=== PATIENT | male | born 1975 | race Caucasian/White ===

== ENCOUNTER 2020-06-20 05:53 | Observation (INO) ==
--- NOTE | 2020-06-14 12:45 | Anesthesiology Consultation ---
Date of Service June 14, 2020 Assessment & Plan (1) Encounter for pre-operative examination: Per assessment on 06/14: Travel screen- Lives/works [place] [facility]. No known COVID- 19 positive contacts or current COVID-19 related symptoms. Surgeon arranging preop COVID testing (scheduled 06/15; S). Awaiting results. Chart Review Chart Review: Acceptable Risk for Surgery and Patient NOT seen in Pre Admission Testing History Surgery Operation Date: 06/20/20 07:30 Proposed Procedures p Robotic Laparoscopic Incisional Hernia Repair with Mesh, Possible Open - Lala Prakash MD Height/Weight Height: 5 ft 6 in Weight: 92.986 kg Allergies Allergy/AdvReac Type Severity Reaction Status Date / Time No Known Allergies Allergy Verified 06/14/20 11:58 Medications Home Medications Medication Instructions Recorded Confirmed Last Taken albuterol sulfate [Ventolin HFA] 2 puff INHALATION Q4H PRN 05/23/20 06/14/20 Unknown montelukast 10 mg PO HS 05/23/20 06/14/20 Unknown omeprazole 20 mg PO QAM 05/23/20 06/14/20 Unknown acetaminophen [Tylenol] 650 mg PO QID PRN 06/14/20 06/14/20 Unknown multivitamin 1 tab PO QAM 06/14/20 06/14/20 Unknown Past Medical History Medical History (Updated 06/14/20 @ 12:43 by Mei Schafer) Asthma occasional inhaler use Diverticular disease GERD (gastroesophageal reflux disease) Obesity Past Family History Family History Father Family history of diabetes mellitus Past Surgical History Surgical History History of bowel resection for diverticulitis History of colonoscopy multiple History of repair of rotator cuff right Social History Smoking Status: Never smoker Do You Dip or Chew Tobacco: No Hx Alcohol Use: Yes Alcohol type: wine and hard liquor alcohol intake frequency: a few times a month Hx Substance Use: No Testing Laboratory Results 05/23/20 WBC 11.87 H/H 14.0/39.6 PLATELETS 350 SODIUM 139 POTASSIUM 3.6 CHLORIDE 104 CO2 29 BUN 14 CREATININE 1.07 GLUCOSE 4 PT 10.6 PTT 34.5 INR 1.0 Electrocardiogram Date: 05/23/20 NSR at 89bpm. Possible LAE. NS STA. Chest X-Ray Date: 05/23/20 No evidence of focal pulmonary consolidation. Suboptimal inspiration. Mild interstitial prominence. This could be related to a hypoventilatory study or an infectious/inflammatory process.
[2020-06-20] MEDS ORDERED: LR 15ML/HR IV SCH (06:00)
[2020-06-20] MEDS ORDERED: ceFAZolin 2000MG 2,000 MG/15 ML SYR IV SCH (06:00)
[2020-06-20] MEDS ORDERED: LIDOCAINE HCL 2% 2 ML VIAL/AMP(20MG/ML) INFIL ONE (07:03)
[2020-06-20] MEDS ORDERED: ONDANSETRON INJ 2 MG/ML 2 ML VIAL ONE ×2 (07:03→10:10)
[2020-06-20] MEDS ORDERED: NEOSTIGMINE METHYLSULFATE 5 MG/5 ML SYR ONE (07:03)
[2020-06-20] MEDS ORDERED: DEXAMETHASONE SOD INJ 4 MG/ML VIAL ONE (07:03)
[2020-06-20] MEDS ORDERED: fentaNYL citrate 100 MCG/2 ML VIAL ONE ×2 (07:03→09:56)
[2020-06-20] MEDS ORDERED: GLYCOPYRROLATE 0.2 MG/ML VIAL ONE (07:03)
[2020-06-20] MEDS ORDERED: MIDAZOLAM HCL 1 MG/ML 2ML VIAL ONE (07:03)
[2020-06-20] MEDS ORDERED: PROPOFOL IV EMULSION 10 MG/ML 20 ML VIAL IV ONE ×2 (07:03→08:20)
[2020-06-20] MEDS ORDERED: LARYING-O-JET KIT (LTA) ONE (07:06)
[2020-06-20] MEDS ORDERED: ROCURONIUM BROMIDE 10 MG/ML 5 ML VIAL IV ONE ×2 (07:06→10:11)
[2020-06-20] MEDS ORDERED: ceFAZolin 2000MG 2,000 MG/15 ML SYR IV ONE (07:13)
--- NOTE | 2020-06-20 07:13 | History & Physical Bridge Note ---
Date of Service June 20, 2020 History & Physical Bridge Note I have examined the patient, reviewed the History & Physical and in the interval since the performance of the History & Physical I have noted the following changes of clinical significance: no changes noted
[2020-06-20] MEDS ORDERED: BUPIVACAINE 0.5 % 5 MG/1 ML MPF 30ML VIAL ONE (07:20)
[2020-06-20] MEDS ORDERED: ePHEDrine sulfate 50 MG/ML SYR ONE (08:35)
[2020-06-20] MEDS ORDERED: PHENYLEPHRINE 100MCG/ML 5ML SYR ONE (08:35)
[2020-06-20] MEDS ORDERED: FLUMAZENIL 0.1 MG/1 ML 10 ML VIAL IV PRN (08:44)
[2020-06-20] MEDS ORDERED: ATROPINE SULFATE 0.1 MG/ML 10ML SYR IV PRN (08:44)
[2020-06-20] MEDS ORDERED: ONDANSETRON INJ 2 MG/ML 2 ML VIAL IV PRN ×3 (08:44→15:19)
[2020-06-20] MEDS ORDERED: NALOXONE HCL 0.4 MG/1 ML VIAL/CARP IV PRN (08:44)
[2020-06-20] MEDS ORDERED: HYDROmorphone INJ 1 MG/ML SYRINGE IV PRN ×3 (08:44→16:25)
[2020-06-20] MEDS ORDERED: LABETALOL HCL IV 5 MG/ML 20ML IV PRN (08:44)
[2020-06-20] MEDS ORDERED: PROMETHAZINE HCL 12.5 MG in SODIUM CHLORIDE 0.9% 50 ML IV PRN (08:44)
[2020-06-20] MEDS ORDERED: ePHEDrine sulfate 50 MG/ML AMP IV PRN (08:44)
[2020-06-20] MEDS ORDERED: SUGAMMADEX SODIUM 200 MG/2 ML VIAL IV ONE (09:23)
[2020-06-20] MEDS ORDERED: BACITRACIN OINT 15 GM TUBE ONE (10:15)
--- NOTE | 2020-06-20 10:16 | Post Operative Brief Note ---
Immediate Post Op Note v1 Date of Surgery June 20, 2020 Pre & Post Diagnosis Operation Date: 06/20/20 07:30 Pre-Op Diagnosis: Incisional Hernia without Obstruction or Gangrene Post-Op Diagnosis: Incisional Hernia without Obstruction or Gangrene I identified the patient and participated in the time-out.: Yes Procedure Operation Date: 06/20/20 07:30 Actual Procedures p Robotic Laparoscopic Incisional Hernia Repair with Mesh(Not Applicable) - Lala Prakash MD Surgeon Lala Prakash MD Services Delivery Driver AWAIS Kolb Estimated Blood Loss 10 Findings Consistent with Post-Op Diagnosis incisional hernia, size about 3x3cm, Fluids 1500ml Specimens none Drains Mcdermott Catheter (inserted by Ronel Lee Rn without difficulty. draining clear yellow urine. anesthesia monitoring output) Anesthesia Type General Complications none Disposition Accompanied Patient To Recovery: Yes Disposition: Recovery Room Overlapping Procedure I was immediately available: during the entire case.
[2020-06-20] MEDS ORDERED: HYDROmorphone INJ 0.5 MG/0.5 ML SYR IV PRN ×2 (10:43→14:48)
[2020-06-20] MEDS ORDERED: SODIUM CHLORIDE 0.9% 1000ML 1,000 ML IV SCH (10:45)
[2020-06-20] MEDS: fentaNYL citrate 100 MCG/2 ML VIAL IV PRN ×4 (11:00→11:27)
--- NOTE | 2020-06-20 11:33 | Anesthesiology Progress Note ---
Date of Service June 20, 2020 Anesthesia Post Procedure Vital Signs Vital Signs: Temp Pulse Pulse Resp BP Pulse Ox 06/20/20 11:25 81 12 136/80 95 06/20/20 11:15 79 17 143/91 H 98 06/20/20 11:05 82 21 139/87 98 06/20/20 10:55 79 20 148/82 H 98 06/20/20 10:45 36.5 C 80 18 126/83 97 06/20/20 06:22 37 C 73 16 150/86 H 97 Pain Intensity Abdomen: Pain Intensity: 5 Transfer of Care Handoff Completed per policy Notes Mental Status: alert / awake / arousable Patient Amnestic to Procedure: Yes Nausea / Vomiting: adequately controlled Pain: adequately controlled Airway Patency, RR, SpO2: stable & adequate BP & HR: stable & adequate Hydration State: stable & adequate Anesthetic Complications: no major complications apparent
--- NOTE | 2020-06-20 11:50 | Operative Report (OR) ---
DATE OF OPERATION: 06/20/2020 PREOPERATIVE DIAGNOSIS: Incisional hernia. POSTOPERATIVE DIAGNOSIS: Incisional hernia. OPERATIVE PROCEDURE: Robotic laparoscopic repair of ventral hernia with mesh. lysis of adhesion SURGEON: Lala Prakash MD. CIGARETTE BOOK MAKER: Elodia Freedman PA-C. ANESTHESIA: General. ESTIMATED BLOOD LOSS: About 10 mL. FINDINGS: Incisional hernia size about 3 x 3 cm. COMPLICATIONS: None. INDICATIONS FOR THE PROCEDURE: This is a 44-year-old gentleman who developed the incisional hernia with abdominal pain and bulging in the abdomen. The patient is required to do a robotic laparoscopy, repair of ventral hernia with mesh. I did talk to the patient about the benefit, the risk, alternate procedure. I indicated the risks may include but not limited to such as bleeding, infection, hernia recurrence, seroma, injury to the bowel, bowel obstruction, incisional hernia, complication related to mesh. The patient understands. He signed informed consent and I answered all questions. DETAILS OF PROCEDURE: We brought the patient to the OR, put the patient in the supine position. The patient received SCD on bilateral legs to prevent DVT. Also, patient received 2 grams of Ancef IV for prophylactic antibiotic. The patient received general anesthesia without difficulty. Also, patient received Mcdermott catheter insertion. Then, the abdomen was prepped and draped in routine sterile fashion. After timeout, I made about a 2 cm incision on the right side of the abdomen, opened the anterior fascia, muscle layer, posterior fascia and the peritoneum under direct vision, put a Indy trocar in, connected to CO2 to create pneumoperitoneum, flow rate at 6 liters per minute, pressure not more than 14 mmHg. Once we got a nice pneumoperitoneum, we put the camera in, looked around the abdomen, there were a lot of scars with adhesion to the abdomen. Then, we put another 8 mm trocar about 10 cm away from the Indy under direct vision and put another 8 mm trocar above the Indy about 10 cm on the right side of the abdomen. Once all trocars in, we docked the robot system machine and then we reduced the hernia content omental fat back to the abdominal cavity. We used scissor with cautery to dissect all of the adhesions and scars on the abdominal wall and around the hernia. Once we reduced all of the hernia content back to the abdominal cavity, then we found the patient had incisional hernia size about 3 x 3 cm at the neck, so I decided to use 0 nonabsorbable V-Loc suture, closed the hernia defect in continuous running. The hernia closed nicely, no tension. Then I chose a 10 x 10 cm mesh to repair the hernia sac. We used the suture passer needle to hold the mesh on the abdomen wall. Then, I used 2-0 absorbable V-Loc suture in continuous running, mesh with abdomen and peritoneum to make a 360 degree sutures, seated nicely and then we removed the holding suture on the mesh. Then, I used 2-0 Vicryl interruptedly, sutured the mesh to the abdomen and peritoneum, the mesh seated nicely, no tension and hemostasis was obtained and no active bleeding. Rechecked everything. Then we removed all trocars under direct vision. No active bleeding from the trocar sites. Pneumoperitoneum was released, now I closed the camera port by using 0 Vicryl [id number] x2 for the external fascial layer and closed subcutaneous layer by using 2-0 Vicryl interruptedly, closed skin by using 4-0 Vicryl continuous running, closed another two 8 mm trocar site skin only by using 4-0 Vicryl. Then, we put the dressing on. The patient tolerated the procedure well. All instrument, needle and sponge count were correct x2 at the end of the case. Also we removed the Mcdermott catheter before the patient was extubated. Then, the patient was transferred to recovery room in stable condition. The first mate, Elodia, was necessary for this procedure to help with exposure and retraction. After the procedure, I did talk to the patient about the OR finding and the procedure we did. Also, I gave the patient postop care instruction. The patient understands. I attest to the content of the Intraoperative Record and any orders documented therein. Any exceptions are noted below. CARMEN
[2020-06-20] MEDS: oxyCODONE/ACETAMINOPHEN 5mg/325mg TAB PO PRN ×3 (12:39→22:13)
[2020-06-20] MEDS ORDERED: oxyCODONE/ACETAMINOPHEN 5mg/325mg TAB PO STA (14:00)
--- NOTE | 2020-06-20 15:47 | Surgery Progress Note ---
Date of Service F/U S/P robotic repair incisional hernia, pt developed S/P pain, abdominal pain, no nausea, no vomiting, no dizziness, pt feels better after IV dilaudid, T 36 .8, HR 105, BP 150/92, O2 95% RA. June 20, 2020 Assessment & Plan (1) Postoperative abdominal pain: pt is a 44 year-old male who had S/P robotic repair incisional hernia with mesh, pt developed post-op abdominal pain , it is difficulty to control abdominal pain with po pain medicine, pt requests to admit to hospital for IV pain medicine, D/W benefits, risks and alternatives of the admit to hospital, pt understood, he agrees with admit to hospital, I answered all questions, iv fluid, clear diet, iv pain medicine, check labs in morning, will F/U Present on Admission?: Yes (2) History of incisional hernia repair: Physical Exam Constitutional: WD/WN, vitals as above well developed and well nourished Eyes: PERRL, conjunctivae normal, anicteric sclerae ENMT: external ear and nose normal, oropharynx normal Neck: trachea midline, no thyromegaly Respiratory: normal respiratory effort, lungs clear to auscultation normal respiratory effort Cardiovascular: RRR, no murmur, no edema Rate/Rhythm: regular rate and regular rhythm Gastrointestinal (Abdomen): Percussion/Palpation: abdomen soft mild tenderness at incisions site, no rebound pain, no distend, BS +, all incisions intact, Musculoskeletal: no cyanosis or clubbing, extremities motor strength 5/5 Skin: no rashes, warm and dry Neurologic: patellar DTR's 2+ bilat, sensation intact awake Psychiatric: Orientation: alert and oriented x 3 Results & Data ([facility]) Vital Signs (Past 12 Hours) Vital Signs Temp Pulse Pulse Resp BP Pulse Ox 06/20/20 15:13 36.8 C 115 H 18 158/95 H 95 06/20/20 14:45 120 H 06/20/20 14:15 37.9 C H 113 H 18 157/82 H 95 06/20/20 13:15 37.2 C 107 H 18 129/73 94 06/20/20 12:45 105 H 18 136/86 95 06/20/20 12:15 37.1 C 96 H 16 137/85 92 06/20/20 12:00 93 H 15 137/85 92 06/20/20 11:45 86 12 131/86 93 06/20/20 11:35 36.1 C L 86 17 135/89 94 06/20/20 11:25 81 12 136/80 95 06/20/20 11:15 79 17 143/91 H 98 06/20/20 11:05 82 21 139/87 98 06/20/20 10:55 79 20 148/82 H 98 06/20/20 10:45 36.5 C 80 18 126/83 97 06/20/20 06:22 37 C 73 16 150/86 H 97
[2020-06-20] MEDS ORDERED: ALBUTEROL HFA 8 GM INHALER INH PRN (16:25)
[2020-06-20] MEDS ORDERED: ACETAMINOPHEN 325 MG TAB PO PRN (16:51)
[2020-06-20] MEDS: LACTATED RINGER'S 1,000 ML IV SCH (17:13)
[2020-06-20] MEDS: METOPROLOL TARTRATE 25 MG TAB PO SCH (17:26)
[2020-06-20] MEDS: ceFAZolin 1000MG 1,000 MG/7.5 ML SYR IV SCH (17:27)
[2020-06-20] MEDS ORDERED: MONTELUKAST SODIUM 10 MG TABLET PO SCH (21:00)
[2020-06-20] MEDS: DOCUSATE SODIUM 100 MG CAP PO SCH (21:23)
[2020-06-20 22:21] LABS: Appearance Urine Clear (Clear); Bilirubin Urine Negative (Negative); Blood Urine Negative (Negative); Color Urine Yellow; Glucose Urine UA Negative (Negative); Ketones Urine Negative (Negative); Leukocyte Esterase Urine Negative (Negative); Nitrite Urine Negative (Negative); Protein Urine Negative (Negative); Specific Gravity Urine 1.006 (1.000-1.030); Urobilinogen Urine Negative (Negative)
[2020-06-21] MEDS: ceFAZolin 1000MG 1,000 MG/7.5 ML SYR IV SCH (01:36)
[2020-06-21] MEDS: LACTATED RINGER'S 1,000 ML IV SCH (05:15)
[2020-06-21 05:56] LABS: Basophils # (auto) 0.02 K/uL (0-0.2); Basophils % (auto) 0.2 %; Eosinophils # (auto) 0.04 K/uL (0-0.5); Eosinophils % (auto) 0.4 %; Hematocrit (blood only) 40.3 % (42-52); Hemoglobin 13.5 g/dL (14.0-18.0); Immature Granulocytes # (auto) 0.02 K/uL (0.00-0.02); Immature Granulocytes % (auto) 0.2 %; Lymphocytes # (auto) 2.42 K/uL (1.2-3.4); Lymphocytes % (auto) 22.9 %; Mean Corpuscular Hemoglobin 29.9 pg (25-34); Mean Corpuscular Hgb Conc 33.5 g/dL (32-36); Mean Corpuscular Volume 89.2 fL (80-100); Mean Platelet Volume 8.7 fL (7.4-10.4); Monocytes # (auto) 1.11 K/uL (0.11-0.59); Monocytes % (auto) 10.5 %; Neutrophils # (auto) 6.96 K/uL (1.4-6.5); Neutrophils % (auto) 65.8 %; Platelet Count 283 K/uL (130-400); RDW Standard Deviation 45.9 fL (36.4-46.3); Red Blood Count 4.52 M/uL (4.7-6.1); White Blood Count 10.57 K/uL (4.8-10.8)
[2020-06-21 06:28] LABS: Albumin Level 3.3 gm/dl (3.4-5.0); BUN Creatinine Ratio 12.5 (10-20); Calcium 8.7 mg/dl (8.5-10.1); Creatinine Clr Calc Pharmacy 102.7 ml/min; Est GFR (African American) 104.4; Potassium 4.1 mmol/L (3.5-5.1)
[2020-06-21 06:31] LABS: Albumin Globulin Ratio 1.1 (0.9-2); Bilirubin,Total 0.7 mg/dl (0.2-1); Globulin 2.9 gm/dl (2.5-4.0); Total Protein 6.2 gm/dl (6.4-8.2)
--- NOTE | 2020-06-21 07:43 | Surgery Progress Note ---
Date of Service F/U S/P robotic repair incisional hernia with mesh. POD 1 pt is doing better, good control incision pain, tolerated clear diet, no nausea, no vomiting, no fever. June 21, 2020 Assessment & Plan (1) Postoperative abdominal pain: pt is a 44 year-old male who had S/P robotic repair incisional hernia with mesh, pt developed post-op abdominal pain , it is difficulty to control abdominal pain with po pain medicine, pt requests to admit to hospital for IV pain medicine, D/W benefits, risks and alternatives of the admit to hospital, pt understood, he agrees with admit to hospital, I answered all questions, iv fluid, clear diet, iv pain medicine, check labs in morning, will F/U 06/21/2020 7:41AM F/U S/P robotic repair incisional hernia with mesh, POD 1 doing fine, pt wants go home today, discharge home today, post-op care instruction was given, F/U 2 weeks, (2) History of incisional hernia repair: Admission and Anticipated Discharge Date Admission Date: June 20, 2020 Physical Exam Constitutional: WD/WN, vitals as above well developed and well nourished Eyes: PERRL, conjunctivae normal, anicteric sclerae ENMT: external ear and nose normal, oropharynx normal Neck: trachea midline, no thyromegaly Respiratory: normal respiratory effort, lungs clear to auscultation normal respiratory effort Cardiovascular: RRR, no murmur, no edema Rate/Rhythm: regular rate and regular rhythm Gastrointestinal (Abdomen): Percussion/Palpation: abdomen soft mild tenderness at incision site, no rebound pain, BS +, all incisions intact, no redness, Musculoskeletal: no cyanosis or clubbing, extremities motor strength 5/5 Skin: no rashes, warm and dry Neurologic: patellar DTR's 2+ bilat, sensation intact awake Psychiatric: Orientation: alert and oriented x 3 Results & Data ([facility]) Vital Signs (Past 12 Hours) Vital Signs Temp Pulse Resp BP Pulse Ox 06/21/20 07:13 37.1 C 16 124/78 96 06/21/20 03:37 36.5 C 71 16 127/77 96 06/20/20 22:55 37.1 C 72 16 128/80 95 Laboratory Results Abnormal lab results 06/21/20 06/21/20 Range/Units 05:44 05:44 RBC 4.52 L (4.7-6.1) M/uL Hgb 13.5 L (14.0-18.0) g/dL Hct 40.3 L (42-52) % Neut # (Auto) 6.96 H (1.4-6.5) K/uL Z[place] # (Auto) 1.11 H (0.11-0.59) K/uL Glucose 102 H (70-99) mg/dl Total Protein 6.2 L (6.4-8.2) gm/dl Albumin 3.3 L (3.4-5.0) gm/dl
[2020-06-21] MEDS: DOCUSATE SODIUM 100 MG CAP PO SCH (08:26)
[2020-06-21] MEDS: METOPROLOL TARTRATE 25 MG TAB PO SCH (08:27)
[2020-06-21] MEDS: oxyCODONE/ACETAMINOPHEN 5mg/325mg TAB PO PRN (08:43)
[2020-06-21] MEDS ORDERED: PANTOprazole 40 MG TAB PO SCH (09:00)
[2020-06-21] MEDS ORDERED: MULTIVITAMIN TAB PO SCH (09:00)
--- NOTE | 2020-06-21 09:33 | Discharge Summary (DS) ---
ADMITTING DIAGNOSIS: Incisional hernia post stat robotic repair incisional hernia with mesh. DISCHARGE DIAGNOSIS: Incisional hernia post stat robotic repair incisional hernia with mesh. OPERATION: Robotic repair of incisional hernia with mesh. SURGEON: Lala Prakash MD. DETAILS OF DISCHARGE SUMMARY: This is a 44-year-old gentleman who went to robotic repair of incisional hernia with mesh on 06/20/2020. After procedure, the patient developed postoperative pain and the patient was admitted to hospital for comfort, the pain went overnight. The patient was doing fine overnight, tolerated a clear diet and the patient got out of bed and move around. The pain was in good control. PHYSICAL EXAMINATION: VITAL SIGNS: Temperature is 37.1, respiratory rate 16, heart rate 71, blood pressure 124/78, O2 saturation 96% on room air. GENERAL: The patient is alert, awake, oriented x3. HEENT: With normal limitation. NEUROLOGIC: Intact. NECK: No JVD. CHEST: Bilateral lung sounds clear. HEART: Normal S1, S2. No murmur. ABDOMEN: Soft. Only incision tenderness, no rebound or pain. Not distended. All incisions intact. Bowel sounds positive. EXTREMITIES: No edema. PLAN: The patient wanted to go home today. We gave the patient postop care instructions and also the patient's all labs are normal. I will follow outpatient in 2 weeks. Also instructed the patient that if the patient gets any worse symptoms, severe pain or any high temperature, the patient should contact my office or go to the hospital ER. The patient understands.
== END 2020-06-21 10:38 | disposition home or self-care (01) ==
LOC: 3N 05:53 → ASU 05:53